=== PATIENT | male | born 1945 | race Caucasian/White ===

== ENCOUNTER 2022-09-22 15:24 | Inpatient (IN) | payer MEDICARE ==
[2022-09-22] MEDS ORDERED: LORazepam 2 MG/ML INJ IV PRN ×2 (15:46)
[2022-09-22 16:23] LABS: HCT 48.4 % (39.0-53.0); HGB 14.8 gm/dL (13.0-17.5); Hypochromasia Marked; MCH 33.1 pg (25.0-35.0); MCHC 30.6 g/dL (31.0-37.0); MCV 107.9 fL (80.0-100.0); Macrocytosis Marked; Mean Platelet Volume 8.8; Platelet Count 107 k/uL (150-450); RBC 4.48 m/uL (4.30-5.90); RDW 15.7 % (11.5-15.5); WBC 12.7 k/uL (3.8-10.6)
[2022-09-22 16:28] LABS: Albumin 1.9 g/dL (3.5-5.0); Magnesium 1.7 mg/dL (1.6-2.3); Total Bilirubin 0.5 mg/dL (0.2-1.3); Total Protein 3.7 g/dL (6.3-8.2)
[2022-09-22 16:29] LABS: Calcium 5.9 mg/dL (8.4-10.2); Potassium 2.6 mmol/L (3.5-5.1)
[2022-09-22] MEDS ORDERED: NOREPINEPHRINE 8 MG in SODIUM CHLORIDE 0.9% 250 ML IV ONE (16:30)
[2022-09-22] MEDS ORDERED: Potassium Replacement Protocol 1 EACH MISC MISCELLANE PRN (16:31)
--- NOTE | 2022-09-22 16:31 | ED ---
General Adult HPI - General Chief complaint: Cardiac Arrest/CPR Stated complaint: CPR Time Seen by Provider: 09/22/22 15:25 Source: EMS, RN notes reviewed Mode of arrival: EMS Limitations: no limitations - History of Present Illness Initial comments: Patient is an unresponsive 76-year-old male presenting to the emergency department by EMS, priority 1. Patient reportedly was walking upstairs when he became short of breath and collapsed. Patient was found by fire with agonal respirations. CPR was started. He received a proximal he 30 minutes of CPR prior to arrival. Patient was intubated by EMS. Patient unable to provide any history. - Related Data Allergies Allergy/AdvReac Type Severity Reaction Status Date / Time Penicillins Allergy Anaphylaxis Verified 09/22/22 17:38 Review of Systems ROS Statement: Those systems with pertinent positive or pertinent negative responses have been documented in the HPI. ROS Other: All systems not noted in ROS Statement are negative. Limitations: ROS unobtainable due to patients medical condition Past Medical History Past Medical History: Unable to Obtain History of Any Multi-Drug Resistant Organisms: None Reported Past Surgical History: Unable to Obtain Smoking Status: Unknown if ever smoked Past Alcohol Use History: Unable to Obtain Past Drug Use History: Unable to Obtain General Exam General appearance: obtunded, other (Intubated, CPR in progress) Head exam: Present: atraumatic Eye exam: Present: other (Pupils sluggish) Neck exam: Present: normal inspection Respiratory exam: Present: other (No spontaneous breath sounds. Equal breath sounds with bagging insufflation) Cardiovascular Exam: Present: other (No spontaneous pulse. No heart sounds.) GI/Abdominal exam: Present: soft. Absent: distended, tenderness Extremities exam: Present: normal inspection Neurological exam: Present: other (Unresponsive. GCS 3.) Psychiatric exam: Present: other (Nonverbal) Skin exam: Present: normal color Course Vital Signs 09/22/22 09/22/22 09/22/22 15:47 15:59 16:13 Pulse Rate 0 L Respiratory 0 L Rate Blood Pressure 0/0 O2 Sat by Pulse 0 L Oximetry Fraction of 100 100 Inspired Oxygen (FIO2) 09/22/22 09/22/22 09/22/22 16:30 16:45 17:11 Pulse Rate 111 H 98 98 Respiratory 16 18 18 Rate Blood Pressure 84/57 63/47 83/61 O2 Sat by Pulse 99 98 97 Oximetry Fraction of Inspired Oxygen (FIO2) 09/22/22 17:39 Pulse Rate 112 H Respiratory 16 Rate Blood Pressure 83/63 O2 Sat by Pulse 95 Oximetry Fraction of Inspired Oxygen (FIO2) - Reevaluation(s) Reevaluation #1: 09/22/22 16:30 Patient did have loss of pulse twice with CPR. Patient again regain pulse. Patient became hypotensive and central line placed. 09/22/22 16:49 Patient had approximately 20-25 minutes of CPR while in the emergency department 09/22/22 17:49 EKG was delayed secondary to previous EKGs with even more artifact 09/22/22 17:52 Case was discussed with sound physician group, Dr. Bello, who will admit covering Dr. Segovia. Case also discussed with Dr. Parker who will consult for critical care. He does request ABG and this has been ordered. EKG Findings - EKG Comments: EKG Findings:: Narrow complex tachycardia rate 1:15 with irregularity. Significant artifact present. QRS 114. QT 334. QTC 402. Right axis. Nonspecific ST-T. Procedures - Central Line Placement Right SC Consent Obtained: emergent situation Patient Placed on Monitor/Pulse Ox: Yes MD Prep: mask, gown, gloves Central Line Prep: Chlorhexidine scrub Ultrasound Used for Placement: No Central Line Lumen Inserted: triple Central Line Position: good blood return, all ports aspirated, flushed, capped, sutured in place with 3-0 nylon Patient Tolerated Procedure: well, no complications Complications: none Medical Decision Making - Lab Data Result diagrams: 09/22/22 16:04 09/22/22 16:04 Lab Results 09/22/22 09/22/22 09/22/22 Range/Units 16:04 16:04 16:04 WBC 12.7 H (3.8-10.6) k/uL RBC 4.48 (4.30-5.90) m/uL Hgb 14.8 (13.0-17.5) gm/dL Hct 48.4 (39.0-53.0) % MCV 107.9 H (80.0-100.0) fL MCH 33.1 (25.0-35.0) pg MCHC 30.6 L (31.0-37.0) g/dL RDW 15.7 H (11.5-15.5) % Plt Count 107 L (150-450) k/uL MPV 8.8 Neutrophils % (Manual) 57 % Lymphocytes % (Manual) 38 % Monocytes % (Manual) 2 % Basophils % (Manual) 2 % Metamyelocytes % 1 % Neutrophils # (Manual) 7.24 (1.3-7.7) k/uL Lymphocytes # (Manual) 4.83 H (1.0-4.8) k/uL Monocytes # (Manual) 0.25 (0-1.0) k/uL Basophils # (Manual) 0.25 H (0-0.2) k/uL Metamyelocytes # (Man) 0.13 H (0) k/uL Nucleated RBCs 0 (0-0) /100 WBC Manual Slide Review Performed Reactive Lymphocytes Present Hypochromasia Marked Macrocytosis Marked A PT 15.1 H (9.0-12.0) sec INR 1.5 H (<1.2) APTT 42.7 H (22.0-30.0) sec Sodium 140 (137-145) mmol/L Potassium 2.6 L* (3.5-5.1) mmol/L Chloride 117 H (98-107) mmol/L Carbon Dioxide 14 L (22-30) mmol/L Anion Gap 9 mmol/L BUN 15 (9-20) mg/dL Creatinine 1.12 (0.66-1.25) mg/dL Est GFR (CKD-EPI)AfAm 74 (>60 ml/min/1.73 sqM) Est GFR (CKD-EPI)NonAf 64 (>60 ml/min/1.73 sqM) Glucose 231 H (74-99) mg/dL Calcium 5.9 L* (8.4-10.2) mg/dL Magnesium 1.7 (1.6-2.3) mg/dL Total Bilirubin 0.5 (0.2-1.3) mg/dL AST 95 H (17-59) U/L ALT 42 (4-49) U/L Alkaline Phosphatase 70 (38-126) U/L Troponin I (0.000-0.034) ng/mL NT-Pro-B Natriuret Pep pg/mL Total Protein 3.7 L (6.3-8.2) g/dL Albumin 1.9 L (3.5-5.0) g/dL Coronavirus (PCR) (Not Detectd) 09/22/22 09/22/22 09/22/22 Range/Units 16:04 16:36 16:37 WBC (3.8-10.6) k/uL RBC (4.30-5.90) m/uL Hgb (13.0-17.5) gm/dL Hct (39.0-53.0) % MCV (80.0-100.0) fL MCH (25.0-35.0) pg MCHC (31.0-37.0) g/dL RDW (11.5-15.5) % Plt Count (150-450) k/uL MPV Neutrophils % (Manual) % Lymphocytes % (Manual) % Monocytes % (Manual) % Basophils % (Manual) % Metamyelocytes % % Neutrophils # (Manual) (1.3-7.7) k/uL Lymphocytes # (Manual) (1.0-4.8) k/uL Monocytes # (Manual) (0-1.0) k/uL Basophils # (Manual) (0-0.2) k/uL Metamyelocytes # (Man) (0) k/uL Nucleated RBCs (0-0) /100 WBC Manual Slide Review Reactive Lymphocytes Hypochromasia Macrocytosis PT (9.0-12.0) sec INR (<1.2) APTT (22.0-30.0) sec Sodium (137-145) mmol/L Potassium (3.5-5.1) mmol/L Chloride (98-107) mmol/L Carbon Dioxide (22-30) mmol/L Anion Gap mmol/L BUN (9-20) mg/dL Creatinine (0.66-1.25) mg/dL Est GFR (CKD-EPI)AfAm (>60 ml/min/1.73 sqM) Est GFR (CKD-EPI)NonAf (>60 ml/min/1.73 sqM) Glucose (74-99) mg/dL Calcium (8.4-10.2) mg/dL Magnesium (1.6-2.3) mg/dL Total Bilirubin (0.2-1.3) mg/dL AST (17-59) U/L ALT (4-49) U/L Alkaline Phosphatase (38-126) U/L Troponin I 0.027 (0.000-0.034) ng/mL NT-Pro-B Natriuret Pep 42863 pg/mL Total Protein (6.3-8.2) g/dL Albumin (3.5-5.0) g/dL Coronavirus (PCR) Not Detected (Not Detectd) - Radiology Data Radiology results: image reviewed (X-ray interpreted by myself shows extensive interstitial fibrosis with increasing infiltrates. Endotracheal tube present. Is present. Gastric tube present.) Critical Care Time Critical Care Time: Yes Total Critical Care Time: 55 Disposition Clinical Impression: Cardiac arrest, Acute respiratory failure, Hypokalemia, Hypocalcemia Disposition: ADMITTED IP TO THIS HOSP Condition: Critical Is patient prescribed a controlled substance at d/c from ED?: No Referrals: Alexandru Segovia MD [Primary Care Provider] - 1-2 days Time of Disposition: 17:52
[2022-09-22 16:33] LABS: INR 1.5 (<1.2); Partial Thromboplastin Time 42.7 sec (22.0-30.0); Prothrombin Time 15.1 sec (9.0-12.0)
--- NOTE | 2022-09-22 16:43 | XR ---
EXAMINATION TYPE: XR chest 1V portable DATE OF EXAM: 09/22/2022 COMPARISON: 10/27/2021 HISTORY: Tube placement TECHNIQUE: Axial view FINDINGS: There is nasogastric tube with the tip in the gastric fundus. There is endotracheal tube 1 cm from the mary. There is right subclavian catheter with tip in the superior vena cava. There is m oderate pulmonary interstitial infiltrates throughout the lung brooks. There are chest leads. No pleu ral effusion. Heart size is normal. IMPRESSION: Extensive pulmonary interstitial fibrosis with increasing interstitial infiltrates compar ed to old exam.
[2022-09-22] MEDS ORDERED: CALCIUM GLUCONATE IN NACL 2 GM in SALINE 1 100ML.BAG IVPB ONE (16:45)
[2022-09-22] MEDS ORDERED: POTASSIUM BICARBONATE/CIT AC 20 MEQ TABLET.EFF NG-TUBE SCH (17:00)
[2022-09-22] MEDS: POTASSIUM CHLORIDE 20 MEQ in WATER FOR INJECTION 1 100ML.BAG IVPB SCH ×3 (17:05→21:25)
--- NOTE | 2022-09-22 17:20 | CT ---
EXAMINATION TYPE: CT brain cspine wo con DATE OF EXAM: 09/22/2022 COMPARISON: CT brain 05/01/2020 HISTORY: Unresponsive. CT DLP: 1483.5 mGycm Automated exposure control for dose reduction was used. Images of the brain and cervical spine obtained with no contrast. There is moderate diffuse cerebral cortical atrophy. There is no mass effect or midline shift. No sig n of intracranial hemorrhage. The calvarium is intact. Skull base is intact. There is normal aeration of the mastoid sinuses. The cervical vertebrae show some straightening. There is a minimal C4-5 subluxation. There is degener ative disc space narrowing and moderate spur formation at C5-6 and C6-7. Facet joints are intact. The re is multilevel hypertrophic facet arthropathy. IMPRESSION: Cerebral atrophy. No acute intracranial abnormality. Atrophy slightly increased compared to the old e xam. Cervical spondylotic changes as above. No acute abnormality of the cervical spine. No fracture.
[2022-09-22 17:27] LABS: Basophils # (M) 0.25 k/uL (0-0.2); Lymphocytes # (M) 4.83 k/uL (1.0-4.8); Metamyelocytes # (M) 0.13 k/uL (0); Metamyelocytes % 1 %; Monocytes # (M) 0.25 k/uL (0-1.0); Neutrophils # (M) 7.24 k/uL (1.3-7.7); Neutrophils % (M) 57 %; Nucleated Red Blood Cells 0 /100 WBC (0-0); Reactive Lymphocytes Present; Total Cells Counted 100
[2022-09-22] MEDS ORDERED: IPRATROPIUM-ALBUTEROL 3 ML NEB INHALATION PRN (17:53)
[2022-09-22] MEDS ORDERED: NALOXONE 0.4 MG/ML 1 ML VIAL IV PRN (17:53)
[2022-09-22 18:01] LABS: Appearance,Urine Clear (Clear); Bilirubin,Urine Negative (Negative); Blood,Urine Negative (Negative); Color,Urine Light Yellow; Glucose,Urine (UA) Negative (Negative); Ketones,Urine Negative (Negative); Leukocyte Esterase,Urine Negative (Negative); Nitrite,Urine Negative (Negative); Protein,Urine Trace (Negative); Urobilinogen,Urine <2.0 mg/dL (<2.0)
[2022-09-22 18:19] LABS: ABG Base Excess -13.6 mmol/L; ABG HCO3 15 mmol/L (21-25); ABG Oxygen Saturation 93.1 % (94-97); ABG PCO2 44 mmHg (35-45); ABG PO2 86 mmHg (83-108); ABG TCO2 17 mmol/L (19-24); Allen Test Performed? Yes
[2022-09-22 18:21] LABS: ABG PH 7.15 (7.35-7.45)
[2022-09-22] MEDS ORDERED: NOREPINEPHRINE 32 MG in SODIUM CHLORIDE 0.9% 218 ML IV ONE (18:37)
[2022-09-22] MEDS ORDERED: DEXTROSE 50% SYRINGE 50 ML IVP PRN ×2 (18:43)
[2022-09-22] MEDS ORDERED: ALBUTEROL NEBULIZED 2.5 MG/3 ML INHALATION PRN (18:44)
[2022-09-22] MEDS ORDERED: NOREPINEPHRINE 32 MG in SODIUM CHLORIDE 0.9% 218 ML IV SCH (18:45)
--- NOTE | 2022-09-22 18:47 | P.HPIM ---
History of Present Illness H&P Date: 09/22/22 Chief Complaint: cardiac arrest Patient is a 76-year-old male with history of cardiac disease, chronic kidney disease 3, diabetes, neuropathy presented after a cardiac arrest. Patient is currently intubated and sedated. Family present at bedside, and stepdaughter. Per , patient was climbing stairs complaining of significant shortness of breath, which is common for him. He has to sit down on a chair, and soon after sitting he had a cardiac arrest. Ambulance was called, and took about 5-10 minutes to arrive. His down time without CPR was roughly 5-10 minutes. Patient was found pulseless by EMS, initiated CPR. Per ED, patient had 30 minutes of CPR in the field, intubated by EMS. Patient lost pulse twice while in the ED, had an approximately 20-25 minutes of CPR while in the ED. On his initial labs, he had a leukocytosis of 12.7, platelet 107, INR 1.5, potassium 2.6, bicarb 14, pH 7.15, calcium 5.9, magnesium 1.7, BNP 17 400, neg ative troponin. Urine was negative. COVID-19 test was negative. Chest x-ray showed pulmonary interstitial fibrosis with worsening interstitial infiltrates. CT head showed no acute abnormalities. EKG showed significant artifact, but no obvious ST elevation, some ST depressions in lateral leads. Patient was given calcium and potassium and also started on norepinephrine and propofol. Per family, patient has never seen pulmonology in the past. Cause of shortness of breath was attribute it to his cardiac disease, which family is unable to specify. denies any recent medication changes, or illness or travel history. Patient seen and examined at bedside. Pertinent positives and negatives as discussed in HPI, a complete review of systems was performed and all other systems are negative. Vital signs reviewed General: intubated and stated, appears at stated age Derm: warm, dry Head: atraumatic, normocephalic, symmetric Eyes: non-reactive pupils ENT: Nose and ears atraumatic Neck: supple Mouth: no lip lesion, mucus membranes moist Cardiovascular: S1S2 reg, no murmur, no edema Lungs: bilateral rhonchi, intubated Abdominal: soft, no appreciable organomegaly Ext: no gross muscle atrophy, no contractures Neuro: no response to painful stimuli Psych: unable to assess Assessment/Plan: Cardiac arrest -prolonged downtime -unclear etiology -possibly arrythmia related given electrolyte derangements -currently intubated and sedated -CXR - interstial infiltrates -wean pressors -currently pupils are non-reactive -reassess neuro status once propofol is off -poor prognosis, discussed with Metabolic acidosis - 2/2 cardiac arrest - lactate pending Hypocalcemia hypokalemia -replete and monitor Chronic medical problems: DM - SSI CKD3 The patient is admitted with an anticipated greater than 2 midnight stay for evaluation of cardiac arrest . Surrogate decision-maker: CODE STATUS:DNR DVT prophylaxis: heparin SQ Anticipated discharge date: pending clinical course Anticipated discharge place: pending clinical course A total of 65 minutes was spent on the care of this complex patient more than 50% of the time was spent in counseling and care coordination. Past Medical History Past Medical History: Unable to Obtain Additional Past Medical History / Comment(s): stage 3 kidney disease, History of Any Multi-Drug Resistant Organisms: None Reported Past Surgical History: Unable to Obtain Smoking Status: Unknown if ever smoked Past Alcohol Use History: Unable to Obtain Past Drug Use History: Unable to Obtain Medications and Allergies Home Medications Medication Instructions Recorded Confirmed Type Albuterol Inhaler [Ventolin Hfa 2 puff INHALATION RT-Q4H PRN 09/22/22 09/22/22 History Inhaler] Isosorbide Mononitrate ER [Imdur] 30 mg PO DAILY 09/22/22 09/22/22 History Magnesium Oxide 400 mg PO DAILY 09/22/22 09/22/22 History Spironolactone [Aldactone] 25 mg PO DAILY 09/22/22 09/22/22 History allopurinoL [Zyloprim] 100 mg PO DAILY 09/22/22 09/22/22 History Allergies Allergy/AdvReac Type Severity Reaction Status Date / Time Penicillins Allergy Anaphylaxis Verified 09/22/22 18:23 Physical Exam Vitals: Vital Signs Pulse Resp BP Pulse Ox FiO2 09/22/22 18:00 103 H 100/70 94 L 09/22/22 17:39 112 H 16 83/63 95 09/22/22 17:11 98 18 83/61 97 09/22/22 16:45 98 18 63/47 98 09/22/22 16:30 111 H 16 84/57 99 11/08/22 16:13 0 L 0 L 0/0 0 L 09/22/22 15:59 100 09/22/22 15:47 100 Intake and Output 09/22/22 09/22/22 09/22/22 06:59 14:59 22:59 Intake Total 32.436 Balance 32.436 Intake: Intake, IV Titration 32.436 Amount Norepinephrine 8 mg In 25.054 Sodium Chloride 0.9% 250 ml @ 0.03 MCG/KG/MIN 4. 081 mls/hr IV .Q24H ONE Rx#:[id number] propofoL 1,000 mg In 7.382 Empty Bag 1 bag @ 15 MCG/ KG/MIN 6.328 mls/hr IV . [id number] LENIN Rx#:[id number] Other: Weight 70.307 kg Results CBC & Chem 7: 09/22/22 16:04 09/22/22 16:04 Labs: Abnormal Lab Results - Last 24 Hours (Table) 09/22/22 09/22/22 09/22/22 Range/Units 16:04 16:04 16:04 WBC 12.7 H (3.8-10.6) k/uL MCV 107.9 H (80.0-100.0) fL MCHC 30.6 L (31.0-37.0) g/dL RDW 15.7 H (11.5-15.5) % Plt Count 107 L (150-450) k/uL Lymphocytes # (Manual) 4.83 H (1.0-4.8) k/uL Basophils # (Manual) 0.25 H (0-0.2) k/uL Metamyelocytes # (Man) 0.13 H (0) k/uL Macrocytosis Marked A PT 15.1 H (9.0-12.0) sec INR 1.5 H (<1.2) APTT 42.7 H (22.0-30.0) sec ABG pH (7.35-7.45) ABG HCO3 (21-25) mmol/L ABG Total CO2 (19-24) mmol/L ABG O2 Saturation (94-97) % Potassium 2.6 L* (3.5-5.1) mmol/L Chloride 117 H (98-107) mmol/L Carbon Dioxide 14 L (22-30) mmol/L Glucose 231 H (74-99) mg/dL Calcium 5.9 L* (8.4-10.2) mg/dL AST 95 H (17-59) U/L Total Protein 3.7 L (6.3-8.2) g/dL Albumin 1.9 L (3.5-5.0) g/dL Urine Protein (Negative) 09/22/22 09/22/22 Range/Units 16:04 18:12 WBC (3.8-10.6) k/uL MCV (80.0-100.0) fL MCHC (31.0-37.0) g/dL RDW (11.5-15.5) % Plt Count (150-450) k/uL Lymphocytes # (Manual) (1.0-4.8) k/uL Basophils # (Manual) (0-0.2) k/uL Metamyelocytes # (Man) (0) k/uL Macrocytosis PT (9.0-12.0) sec INR (<1.2) APTT (22.0-30.0) sec ABG pH 7.15 L* (7.35-7.45) ABG HCO3 15 L (21-25) mmol/L ABG Total CO2 17 L (19-24) mmol/L ABG O2 Saturation 93.1 L (94-97) % Potassium (3.5-5.1) mmol/L Chloride (98-107) mmol/L Carbon Dioxide (22-30) mmol/L Glucose (74-99) mg/dL Calcium (8.4-10.2) mg/dL AST (17-59) U/L Total Protein (6.3-8.2) g/dL Albumin (3.5-5.0) g/dL Urine Protein Trace H (Negative)
[2022-09-22] MEDS ORDERED: INSULIN ASPART (NovoLOG) 100 UNIT/ML VIAL SQ SCH (19:00)
[2022-09-22] MEDS ORDERED: DEXTROSE 5% IN WATER 1,000 ML with SODIUM BICARB (1 MEQ/ML) 150 ML IV SCH (19:30)
[2022-09-22 19:40] LABS: Glucose,Whole Blood 223 mg/dL (70-110)
[2022-09-22 19:47] LABS: Albumin 3.3 g/dL (3.5-5.0); Calcium 8.9 mg/dL (8.4-10.2); Total Protein 5.8 g/dL (6.3-8.2)
[2022-09-22 20:08] LABS: Magnesium 2.2 mg/dL (1.6-2.3); Phosphorus 6.2 mg/dL (2.5-4.5); Potassium 4.7 mmol/L (3.5-5.1)
[2022-09-22] MEDS ORDERED: VASOPRESSIN 60 UNIT in SODIUM CHLORIDE 0.9% 150 ML IV SCH (20:15)
[2022-09-22] MEDS ORDERED: SODIUM CHLORIDE 0.9% 1,000 ML IV SCH (20:30)
--- NOTE | 2022-09-22 21:22 | XR ---
EXAMINATION TYPE: XR chest 1V portable DATE OF EXAM: 09/22/2022 COMPARISON: NONE HISTORY: Today TECHNIQUE: Single view FINDINGS: Endotracheal tube is 2 cm from the mary. There is moderate pulmonary interstitial and air space edema. There is nasogastric tube in the stomach. Trachea is midline. IMPRESSION: Moderate pulmonary edema without change.
[2022-09-22 22:04] VITALS: BP 51/41; PULSE 81; RESP 20; TEMP 94.6
[2022-09-22] MEDS ORDERED: MORPHINE SULFATE 4 MG/ML SYRINGE IV PRN (22:06)
[2022-09-22] MEDS ORDERED: MORPHINE SULFATE 2 MG/ML SYRINGE IV PRN (22:06)
[2022-09-23] MEDS ORDERED: HEPARIN SODIUM,PORCINE/PF 5,000 UNIT/0.5 ML SYRINGE SQ SCH
[2022-09-23] MEDS ORDERED: PANTOPRAZOLE 40 MG/10 ML VIAL IV SCH (09:00)
--- NOTE | 2022-09-23 16:48 | P.DS ---
Providers Date of admission: 09/22/22 17:53 Expected date of discharge: 09/22/22 Attending physician: Darren Dolan MD Consults: 09/22/22 17:53 Consult Physician Stat Consulting Provider: Chanda Parker Consult Reason/Comments: critical care Do you want consulting provider notified?: Already Contacted Consult Physician Urgent Consulting Provider: Denton Shah Consult Reason/Comments: cardiac arrest, eval for chf Do you want consulting provider notified?: Yes 09/22/22 19:11 Consult Physician Routine Consulting Provider: Michael Arita Consult Reason/Comments: anoxic brain injury Do you want consulting provider notified?: Yes, Notify in am Primary care physician: [facility] Course: Discharge Diagnosis: Cardiac arrest with prolonged down time Hypocalcemia Hypokalemia Metabolic acidosis Hospital Course: Patient is a 76-year-old male with history of cardiac disease, chronic kidney disease 3, diabetes, neuropathy presented after a cardiac arrest. Patient had a prolonged downtime without CPR, and went through multiple rounds of CPR in the field as well as in the ED. Patient was intubated EMS. On his initial labs, he had a leukocytosis of 12.7, platelet 107, INR 1.5, potassium 2.6, bicarb 14, pH 7.15, calcium 5.9, magnesium 1.7, BNP 17 400, negative troponin. Urine was negative. COVID-19 test was negative. Chest x-ray showed pulmonary interstitial fibrosis with worsening interstitial infiltrates. CT head showed no acute abnormalities. EKG showed significant artifact, but no obvious ST elevation, some ST depressions in lateral leads. After discussion with , patient was made DO NOT RESUSCITATE. Patient continued to decline, despite supportive care. Patient eventually at 22:17 on 09/22/22. Plan - Discharge Summary New Discharge Prescriptions: No Action Isosorbide Mononitrate ER [Imdur] 30 mg PO DAILY Albuterol Inhaler [Ventolin Hfa Inhaler] 2 puff INHALATION RT-Q4H PRN PRN Reason: Shortness Of Breath Magnesium Oxide 400 mg PO DAILY Spironolactone [Aldactone] 25 mg PO DAILY allopurinoL [Zyloprim] 100 mg PO DAILY Discharge Medication List Albuterol Inhaler [Ventolin Hfa Inhaler] 2 puff INHALATION RT-Q4H PRN 09/22/22 [History] Isosorbide Mononitrate ER [Imdur] 30 mg PO DAILY 09/22/22 [History] Magnesium Oxide 400 mg PO DAILY 09/22/22 [History] Spironolactone [Aldactone] 25 mg PO DAILY 09/22/22 [History] allopurinoL [Zyloprim] 100 mg PO DAILY 09/22/22 [History] Follow up Appointment(s)/Referral(s): Alexandru Segovia MD [Primary Care Provider] - 1-2 days Discharge Disposition: - Preliminary Cause of Preliminary Cause of : Cardiac arrest
== END 2022-09-22 22:27 | disposition expired | DRG 296 ==
LOC: EDBD → SUPCPDRO 15:24 → EC 15:24 → 2SICU 17:53
PROVIDERS: ADMIT Student in an Organized Health Care Education/Training Program; ATTEND Student in an Organized Health Care Education/Training Program
PROC: 5A12012 Performance of Cardiac Output, Single, Manual (ICD-10-PCS; principal; 2022-09-22)
PROC: 0BH17EZ Insertion of Endotracheal Airway into Trachea, Via Natural or Artificial Opening (ICD-10-PCS; 2022-09-22)
PROC: 05H533Z Insertion of Infusion Device into Right Subclavian Vein, Percutaneous Approach (ICD-10-PCS; 2022-09-22)
DX: I46.9 Cardiac arrest, cause unspecified (principal); J96.00 Acute respiratory failure, unspecified whether with hypoxia or hypercapnia; E87.20 Acidosis, unspecified; G93.1 Anoxic brain damage, not elsewhere classified; J84.10 Pulmonary fibrosis, unspecified; N18.30 Chronic kidney disease, stage 3 unspecified; I46.2 Cardiac arrest due to underlying cardiac condition; D72.829 Elevated white blood cell count, unspecified; Z20.822 Contact with and (suspected) exposure to COVID-19; E11.22 Type 2 diabetes mellitus with diabetic chronic kidney disease; E11.40 Type 2 diabetes mellitus with diabetic neuropathy, unspecified; E83.51 Hypocalcemia; E87.6 Hypokalemia; Z79.899 Other long term (current) drug therapy; Z88.0 Allergy status to penicillin; Z66 Do not resuscitate
CPT/HCPCS: 36415; 36600; 70450; 71045; 72125; 80053; 81003; 82805; 83036; 83605; 83735; 83880; 84100; 84484; 85025; 85610; 85730; 87635; 93005; 94002